=== PATIENT | female | born 1950 | race Caucasian/White ===

== ENCOUNTER 2020-01-08 11:14 | Inpatient (IN) ==
[2020-01-09] MEDS: *HR* HYDROcodone/Acet 5/325 mg TABLET PO PRN ×4 (01:57→20:35)
[2020-01-09] MEDS: *HR* Heparin 5,000 UNIT/ML VIAL SQ SCH ×2 (05:12→16:32)
[2020-01-09 05:36] LABS: Hematocrit 36.7 % (35.3-44.9); Hemoglobin 11.9 g/dL (11.5-15.4); Mean Corpuscular HGB Conc 32.4 g/dL (31.6-35.5); Mean Corpuscular Hemoglobin 28.6 pg (28.0-33.3); Mean Corpuscular Volume 88.2 fL (83.0-100.0); Mean Platelet Volume 10.1 fL (9.4-12.4); Platelet Count 445 K/mcL (140-400); Red Blood Count 4.16 M/mcL (3.82-4.97); White Blood Count 8.5 K/mcL (4.3-11.1)
[2020-01-09 05:57] LABS: BUN/Creatinine Ratio 21 (6-26); Blood Urea Nitrogen 16 mg/dL (8-23); Calcium 9.9 mg/dL (8.6-10.3); Carbon Dioxide 33 mEq/L (23-29); Chloride 92 mEq/L (98-107); Glucose 120 mg/dL (70-105); Osmolality,Calculated 280 (280-300); Potassium 4.1 mEq/L (3.5-5.1); Sodium 134 mEq/L (136-145); eGFR For African Americans > 60 (> 60); eGFR For Non-African Americans > 60 (> 60)
[2020-01-09] MEDS: FLUoxetine 20 MG CAPSULE PO SCH (08:39)
[2020-01-09] MEDS: Cholecalciferol (D-3) 1,000 UNIT (25MCG) TABLET PO SCH (08:39)
[2020-01-09] MEDS: Multivit/Ca/Min/Fe/FA 1 TAB TABLET PO SCH (08:39)
[2020-01-09] MEDS: hydroCHLOROthiazide 25 MG TABLET PO SCH (08:39)
[2020-01-09] MEDS: atenoloL 50 MG TABLET PO SCH (08:40)
[2020-01-09] MEDS: allopurinoL 100 MG TABLET PO SCH (08:40)
[2020-01-09] MEDS: lisinopriL 20 MG TABLET PO SCH (08:40)
[2020-01-09] MEDS: Nystatin POWDER 30 GM BOTTLE TP SCH ×2 (09:43→20:35)
[2020-01-09] MEDS ORDERED: MOM Conc 10 ML UD.LIQ PO PRN (11:29)
[2020-01-09] MEDS: Sennosides 8.6 MG TABLET PO SCH (20:35)
[2020-01-10] MEDS: *HR* Heparin 5,000 UNIT/ML VIAL SQ SCH ×2 (06:13→16:42)
[2020-01-10] MEDS: *HR* HYDROcodone/Acet 5/325 mg TABLET PO PRN ×2 (06:44→13:09)
[2020-01-10] MEDS: Sennosides 8.6 MG TABLET PO SCH ×2 (08:52→20:20)
[2020-01-10] MEDS: Cholecalciferol (D-3) 1,000 UNIT (25MCG) TABLET PO SCH (09:01)
[2020-01-10] MEDS: Multivit/Ca/Min/Fe/FA 1 TAB TABLET PO SCH (09:01)
[2020-01-10] MEDS: atenoloL 50 MG TABLET PO SCH (09:01)
[2020-01-10] MEDS: FLUoxetine 20 MG CAPSULE PO SCH (09:01)
[2020-01-10] MEDS: lisinopriL 20 MG TABLET PO SCH (09:01)
[2020-01-10] MEDS: allopurinoL 100 MG TABLET PO SCH (09:01)
[2020-01-10] MEDS: polyethylene glycoL 3350 17 GM POWD.PACK PO SCH (09:02)
[2020-01-10] MEDS: hydroCHLOROthiazide 25 MG TABLET PO SCH (09:02)
[2020-01-10] MEDS: Nystatin POWDER 30 GM BOTTLE TP SCH ×2 (09:03→20:22)
[2020-01-10] MEDS ORDERED: atenoloL 50 MG TABLET PO STA (10:52)
[2020-01-11] MEDS: *HR* Heparin 5,000 UNIT/ML VIAL SQ SCH ×2 (05:06→16:58)
[2020-01-11 05:13] LABS: Hemoglobin 11.6 g/dL (11.5-15.4); Mean Corpuscular HGB Conc 33.1 g/dL (31.6-35.5); Mean Corpuscular Hemoglobin 28.4 pg (28.0-33.3); Mean Corpuscular Volume 85.8 fL (83.0-100.0); Platelet Count 468 K/mcL (140-400); Red Blood Count 4.08 M/mcL (3.82-4.97); Red Cell Distribution Width 13.1 % (11.5-14.5); White Blood Count 9.8 K/mcL (4.3-11.1)
[2020-01-11 05:33] LABS: Alanine Aminotransferase 36 Units/L (7-52); Albumin 3.4 g/dL (3.5-5.7); Alkaline Phosphatase 74 Units/L (34-104); Aspartate Amino Transferase 53 Units/L (13-39); BUN/Creatinine Ratio 25 (6-26); Bilirubin,Total 0.7 mg/dL (0.3-1.0); Blood Urea Nitrogen 22 mg/dL (8-23); Calcium 9.6 mg/dL (8.6-10.3); Carbon Dioxide 30 mEq/L (23-29); Chloride 87 mEq/L (98-107); Globulin 3.4 g/dL (2.4-3.5); Glucose 123 mg/dL (70-105); Magnesium 1.7 mg/dL (1.6-2.6); Osmolality,Calculated 271 (280-300); Potassium 4.3 mEq/L (3.5-5.1); Sodium 128 mEq/L (136-145); Total Protein 6.8 g/dL (6.4-8.9); eGFR For African Americans > 60 (> 60); eGFR For Non-African Americans > 60 (> 60)
[2020-01-11] MEDS: Multivit/Ca/Min/Fe/FA 1 TAB TABLET PO SCH (08:57)
[2020-01-11] MEDS: lisinopriL 20 MG TABLET PO SCH (08:57)
[2020-01-11] MEDS: Cholecalciferol (D-3) 1,000 UNIT (25MCG) TABLET PO SCH (08:57)
[2020-01-11] MEDS: hydroCHLOROthiazide 25 MG TABLET PO SCH (08:58)
[2020-01-11] MEDS: allopurinoL 100 MG TABLET PO SCH (08:58)
[2020-01-11] MEDS: Nystatin POWDER 30 GM BOTTLE TP SCH ×2 (08:58→21:14)
[2020-01-11] MEDS: atenoloL 50 MG TABLET PO SCH (08:58)
[2020-01-11] MEDS: Sennosides 8.6 MG TABLET PO SCH ×2 (08:58→21:12)
[2020-01-11] MEDS: polyethylene glycoL 3350 17 GM POWD.PACK PO SCH (08:58)
[2020-01-11] MEDS: FLUoxetine 20 MG CAPSULE PO SCH (08:58)
[2020-01-11] MEDS: *HR* HYDROcodone/Acet 5/325 mg TABLET PO PRN (09:01)
[2020-01-11] MEDS: *HR* HYDROcodone/Acet 10/325 mg TABLET PO PRN (15:30)
[2020-01-12] MEDS: *HR* Heparin 5,000 UNIT/ML VIAL SQ SCH ×2 (04:53→17:19)
[2020-01-12 05:23] LABS: BUN/Creatinine Ratio 29 (6-26); Blood Urea Nitrogen 25 mg/dL (8-23); Calcium 9.5 mg/dL (8.6-10.3); Carbon Dioxide 30 mEq/L (23-29); Chloride 87 mEq/L (98-107); Glucose 101 mg/dL (70-105); Magnesium 1.9 mg/dL (1.6-2.6); Osmolality,Calculated 269 (280-300); Potassium 4.1 mEq/L (3.5-5.1); Sodium 127 mEq/L (136-145); eGFR For African Americans > 60 (> 60); eGFR For Non-African Americans > 60 (> 60)
[2020-01-12] MEDS: FLUoxetine 20 MG CAPSULE PO SCH (08:03)
[2020-01-12] MEDS: Sennosides 8.6 MG TABLET PO SCH ×2 (08:03→20:16)
[2020-01-12] MEDS: lisinopriL 20 MG TABLET PO SCH (08:04)
[2020-01-12] MEDS: allopurinoL 100 MG TABLET PO SCH (08:04)
[2020-01-12] MEDS: *HR* HYDROcodone/Acet 5/325 mg TABLET PO PRN ×2 (08:04→17:19)
[2020-01-12] MEDS: atenoloL 50 MG TABLET PO SCH (08:04)
[2020-01-12] MEDS: Cholecalciferol (D-3) 1,000 UNIT (25MCG) TABLET PO SCH (08:04)
[2020-01-12] MEDS: Multivit/Ca/Min/Fe/FA 1 TAB TABLET PO SCH (08:04)
[2020-01-12] MEDS: polyethylene glycoL 3350 17 GM POWD.PACK PO SCH (08:04)
[2020-01-12] MEDS: Nystatin POWDER 30 GM BOTTLE TP SCH ×2 (10:55→20:17)
[2020-01-13] MEDS: *HR* Heparin 5,000 UNIT/ML VIAL SQ SCH ×2 (04:54→16:32)
[2020-01-13] MEDS: lisinopriL 20 MG TABLET PO SCH (08:53)
[2020-01-13] MEDS: Cholecalciferol (D-3) 1,000 UNIT (25MCG) TABLET PO SCH (08:53)
[2020-01-13] MEDS: polyethylene glycoL 3350 17 GM POWD.PACK PO SCH (08:54)
[2020-01-13] MEDS: Multivit/Ca/Min/Fe/FA 1 TAB TABLET PO SCH (08:54)
[2020-01-13] MEDS: Nystatin POWDER 30 GM BOTTLE TP SCH ×2 (08:54→20:41)
[2020-01-13] MEDS: Sennosides 8.6 MG TABLET PO SCH ×2 (08:54→20:41)
[2020-01-13] MEDS: atenoloL 50 MG TABLET PO SCH (08:54)
[2020-01-13] MEDS: *HR* HYDROcodone/Acet 5/325 mg TABLET PO PRN ×2 (08:54→16:32)
[2020-01-13] MEDS: FLUoxetine 20 MG CAPSULE PO SCH (08:54)
[2020-01-13] MEDS: allopurinoL 100 MG TABLET PO SCH (08:54)
[2020-01-14] MEDS: *HR* HYDROcodone/Acet 5/325 mg TABLET PO PRN ×2 (01:08→12:14)
[2020-01-14] MEDS: *HR* Heparin 5,000 UNIT/ML VIAL SQ SCH ×2 (04:58→18:16)
[2020-01-14 05:09] LABS: BUN/Creatinine Ratio 27 (6-26); Blood Urea Nitrogen 27 mg/dL (8-23); Calcium 9.5 mg/dL (8.6-10.3); Carbon Dioxide 32 mEq/L (23-29); Chloride 87 mEq/L (98-107); Glucose 90 mg/dL (70-105); Osmolality,Calculated 271 (280-300); Potassium 4.1 mEq/L (3.5-5.1); Sodium 128 mEq/L (136-145); eGFR For African Americans > 60 (> 60); eGFR For Non-African Americans 55 (> 60)
[2020-01-14] MEDS: lisinopriL 20 MG TABLET PO SCH (08:50)
[2020-01-14] MEDS: Cholecalciferol (D-3) 1,000 UNIT (25MCG) TABLET PO SCH (08:50)
[2020-01-14] MEDS: Sennosides 8.6 MG TABLET PO SCH ×2 (08:50→20:16)
[2020-01-14] MEDS: atenoloL 50 MG TABLET PO SCH (08:50)
[2020-01-14] MEDS: Multivit/Ca/Min/Fe/FA 1 TAB TABLET PO SCH (08:50)
[2020-01-14] MEDS: FLUoxetine 20 MG CAPSULE PO SCH (08:50)
[2020-01-14] MEDS: allopurinoL 100 MG TABLET PO SCH (08:51)
[2020-01-14] MEDS: polyethylene glycoL 3350 17 GM POWD.PACK PO SCH (08:51)
[2020-01-14] MEDS: Nystatin POWDER 30 GM BOTTLE TP SCH (08:51)
[2020-01-14] MEDS: *HR* HYDROcodone/Acet 10/325 mg TABLET PO PRN (20:16)
[2020-01-15] MEDS: Nystatin POWDER 30 GM BOTTLE TP SCH ×3 (01:52→21:52)
[2020-01-15] MEDS: *HR* Heparin 5,000 UNIT/ML VIAL SQ SCH ×2 (04:37→17:35)
[2020-01-15] MEDS: *HR* HYDROcodone/Acet 10/325 mg TABLET PO PRN ×2 (04:39→21:52)
[2020-01-15] MEDS: lisinopriL 20 MG TABLET PO SCH (08:40)
[2020-01-15] MEDS: allopurinoL 100 MG TABLET PO SCH (08:40)
[2020-01-15] MEDS: Cholecalciferol (D-3) 1,000 UNIT (25MCG) TABLET PO SCH (08:40)
[2020-01-15] MEDS: atenoloL 50 MG TABLET PO SCH (08:40)
[2020-01-15] MEDS: FLUoxetine 20 MG CAPSULE PO SCH (08:40)
[2020-01-15] MEDS: Sennosides 8.6 MG TABLET PO SCH ×2 (08:40→21:52)
[2020-01-15] MEDS: Multivit/Ca/Min/Fe/FA 1 TAB TABLET PO SCH (08:40)
[2020-01-15] MEDS: polyethylene glycoL 3350 17 GM POWD.PACK PO SCH (09:12)
[2020-01-15] MEDS: *HR* HYDROcodone/Acet 5/325 mg TABLET PO PRN (12:04)
[2020-01-15 21:10] LABS: Adenovirus Not Detected (Not Detect); Bordetella Pertussis Not Detected (Not Detect); Chlamydophila pneumoniae Not Detected (Not Detect); Coronavirus 229E Not Detected (Not Detect); Coronavirus HKU1 Not Detected (Not Detect); Coronavirus NL63 Not Detected (Not Detect); Coronavirus OC43 Not Detected (Not Detect); Human Metapneumovirus Not Detected (Not Detect); Human Rhinovirus/Enterovirus Not Detected (Not Detect); Influenza A Subtype 2009 H1 Not Detected (Not Detect); Influenza B Not Detected (Not Detect); Mycoplasma pneumoniae Not Detected (Not Detect); Parainfluenza Virus 1 Not Detected (Not Detect); Parainfluenza Virus 2 Not Detected (Not Detect); Parainfluenza Virus 3 Not Detected (Not Detect); Parainfluenza Virus 4 Not Detected (Not Detect); Respiratory Syncytial Virus Not Detected (Not Detect); SARS-CoV-2 Not Detected (Not Detect)
[2020-01-16] MEDS: *HR* Heparin 5,000 UNIT/ML VIAL SQ SCH ×2 (04:05→18:44)
[2020-01-16] MEDS: *HR* HYDROcodone/Acet 5/325 mg TABLET PO PRN ×2 (04:05→14:17)
[2020-01-16] MEDS: Sennosides 8.6 MG TABLET PO SCH ×2 (08:24→20:52)
[2020-01-16] MEDS: lisinopriL 20 MG TABLET PO SCH (08:24)
[2020-01-16] MEDS: Cholecalciferol (D-3) 1,000 UNIT (25MCG) TABLET PO SCH (08:24)
[2020-01-16] MEDS: allopurinoL 100 MG TABLET PO SCH (08:24)
[2020-01-16] MEDS: atenoloL 50 MG TABLET PO SCH (08:24)
[2020-01-16] MEDS: Multivit/Ca/Min/Fe/FA 1 TAB TABLET PO SCH (08:24)
[2020-01-16] MEDS: FLUoxetine 20 MG CAPSULE PO SCH (08:25)
[2020-01-16] MEDS: polyethylene glycoL 3350 17 GM POWD.PACK PO SCH (08:27)
[2020-01-16] MEDS: Nystatin POWDER 30 GM BOTTLE TP SCH (08:27)
[2020-01-16] MEDS: *HR* HYDROcodone/Acet 10/325 mg TABLET PO PRN (20:52)
[2020-01-17] MEDS: Nystatin POWDER 30 GM BOTTLE TP SCH ×3 (04:05→20:35)
[2020-01-17] MEDS: *HR* HYDROcodone/Acet 5/325 mg TABLET PO PRN ×2 (05:02→16:17)
[2020-01-17] MEDS: *HR* Heparin 5,000 UNIT/ML VIAL SQ SCH ×2 (05:03→16:17)
[2020-01-17] MEDS: Multivit/Ca/Min/Fe/FA 1 TAB TABLET PO SCH (07:55)
[2020-01-17] MEDS: Sennosides 8.6 MG TABLET PO SCH ×2 (07:56→20:35)
[2020-01-17] MEDS: polyethylene glycoL 3350 17 GM POWD.PACK PO SCH (07:56)
[2020-01-17] MEDS: lisinopriL 20 MG TABLET PO SCH (07:56)
[2020-01-17] MEDS: Cholecalciferol (D-3) 1,000 UNIT (25MCG) TABLET PO SCH (07:56)
[2020-01-17] MEDS: atenoloL 50 MG TABLET PO SCH (07:56)
[2020-01-17] MEDS: FLUoxetine 20 MG CAPSULE PO SCH (07:56)
[2020-01-17] MEDS: allopurinoL 100 MG TABLET PO SCH (07:56)
[2020-01-18] MEDS: *HR* Heparin 5,000 UNIT/ML VIAL SQ SCH ×2 (05:08→16:59)
[2020-01-18] MEDS: *HR* HYDROcodone/Acet 5/325 mg TABLET PO PRN ×2 (06:58→21:44)
[2020-01-18] MEDS: polyethylene glycoL 3350 17 GM POWD.PACK PO SCH (07:45)
[2020-01-18] MEDS: lisinopriL 20 MG TABLET PO SCH (07:45)
[2020-01-18] MEDS: atenoloL 50 MG TABLET PO SCH (07:45)
[2020-01-18] MEDS: Multivit/Ca/Min/Fe/FA 1 TAB TABLET PO SCH (07:45)
[2020-01-18] MEDS: Sennosides 8.6 MG TABLET PO SCH ×2 (07:45→19:45)
[2020-01-18] MEDS: FLUoxetine 20 MG CAPSULE PO SCH (07:45)
[2020-01-18] MEDS: Cholecalciferol (D-3) 1,000 UNIT (25MCG) TABLET PO SCH (07:45)
[2020-01-18] MEDS: allopurinoL 100 MG TABLET PO SCH (07:45)
[2020-01-18] MEDS: Nystatin POWDER 30 GM BOTTLE TP SCH ×2 (07:46→19:47)
[2020-01-19] MEDS: *HR* HYDROcodone/Acet 5/325 mg TABLET PO PRN ×3 (04:59→20:58)
[2020-01-19] MEDS: *HR* Heparin 5,000 UNIT/ML VIAL SQ SCH ×2 (04:59→17:57)
[2020-01-19 05:01] LABS: Basophils % 0.8 %; Eosinophils # 0.1 K/mcL (0.0-0.6); Eosinophils % 1.6 %; Hematocrit 34.4 % (35.3-44.9); Hemoglobin 11.2 g/dL (11.5-15.4); Immature Granulocytes % 0.6 % (0-4); Lymphocytes # 1.2 K/mcL (0.6-4.6); Lymphocytes % 24.8 %; Mean Corpuscular HGB Conc 32.6 g/dL (31.6-35.5); Mean Corpuscular Hemoglobin 28.6 pg (28.0-33.3); Mean Corpuscular Volume 87.8 fL (83.0-100.0); Mean Platelet Volume 10.5 fL (9.4-12.4); Monocytes # 0.6 K/mcL (0.0-1.3); Monocytes % 11.8 %; Platelet Count 347 K/mcL (140-400); Red Blood Count 3.92 M/mcL (3.82-4.97); Red Cell Distribution Width 13.4 % (11.5-14.5); Segmented Neutrophils % 60.4 %
[2020-01-19 05:16] LABS: BUN/Creatinine Ratio 20 (6-26); Blood Urea Nitrogen 17 mg/dL (8-23); Calcium 9.3 mg/dL (8.6-10.3); Carbon Dioxide 31 mEq/L (23-29); Chloride 91 mEq/L (98-107); Glucose 113 mg/dL (70-105); Osmolality,Calculated 270 (280-300); Potassium 4.8 mEq/L (3.5-5.1); Sodium 129 mEq/L (136-145); eGFR For African Americans > 60 (> 60); eGFR For Non-African Americans > 60 (> 60)
[2020-01-19] MEDS: Nystatin POWDER 30 GM BOTTLE TP SCH ×2 (10:02→20:59)
[2020-01-19] MEDS: polyethylene glycoL 3350 17 GM POWD.PACK PO SCH (10:02)
[2020-01-19] MEDS: Multivit/Ca/Min/Fe/FA 1 TAB TABLET PO SCH (10:31)
[2020-01-19] MEDS: Cholecalciferol (D-3) 1,000 UNIT (25MCG) TABLET PO SCH (10:31)
[2020-01-19] MEDS: Sennosides 8.6 MG TABLET PO SCH ×2 (10:31→20:57)
[2020-01-19] MEDS: lisinopriL 20 MG TABLET PO SCH (10:31)
[2020-01-19] MEDS: atenoloL 50 MG TABLET PO SCH (10:32)
[2020-01-19] MEDS: allopurinoL 100 MG TABLET PO SCH (10:32)
[2020-01-19] MEDS: FLUoxetine 20 MG CAPSULE PO SCH (10:32)
[2020-01-20] MEDS: *HR* HYDROcodone/Acet 5/325 mg TABLET PO PRN ×3 (05:41→20:54)
[2020-01-20] MEDS: *HR* Heparin 5,000 UNIT/ML VIAL SQ SCH ×2 (05:41→16:59)
[2020-01-20] MEDS: atenoloL 50 MG TABLET PO SCH (08:16)
[2020-01-20] MEDS: Nystatin POWDER 30 GM BOTTLE TP SCH ×2 (08:16→22:49)
[2020-01-20] MEDS: Multivit/Ca/Min/Fe/FA 1 TAB TABLET PO SCH (08:16)
[2020-01-20] MEDS: polyethylene glycoL 3350 17 GM POWD.PACK PO SCH (08:16)
[2020-01-20] MEDS: allopurinoL 100 MG TABLET PO SCH (08:16)
[2020-01-20] MEDS: Cholecalciferol (D-3) 1,000 UNIT (25MCG) TABLET PO SCH (08:16)
[2020-01-20] MEDS: Sennosides 8.6 MG TABLET PO SCH ×2 (08:16→20:55)
[2020-01-20] MEDS: FLUoxetine 20 MG CAPSULE PO SCH (08:16)
[2020-01-20] MEDS: lisinopriL 20 MG TABLET PO SCH (08:16)
[2020-01-21] MEDS ORDERED: Acetaminophen 325 MG TABLET PO PRN (00:41)
[2020-01-21] MEDS: *HR* Heparin 5,000 UNIT/ML VIAL SQ SCH (05:20)
[2020-01-21] MEDS: *HR* HYDROcodone/Acet 10/325 mg TABLET PO PRN (06:30)
[2020-01-21 08:15] VITALS: BP 159/83
[2020-01-21] MEDS: Sennosides 8.6 MG TABLET PO SCH (08:28)
[2020-01-21] MEDS: FLUoxetine 20 MG CAPSULE PO SCH (08:28)
[2020-01-21] MEDS: atenoloL 50 MG TABLET PO SCH (08:28)
[2020-01-21] MEDS: allopurinoL 100 MG TABLET PO SCH (08:28)
[2020-01-21] MEDS: lisinopriL 20 MG TABLET PO SCH (08:29)
[2020-01-21] MEDS: Nystatin POWDER 30 GM BOTTLE TP SCH (08:29)
[2020-01-21] MEDS: Multivit/Ca/Min/Fe/FA 1 TAB TABLET PO SCH (08:29)
[2020-01-21] MEDS: Cholecalciferol (D-3) 1,000 UNIT (25MCG) TABLET PO SCH (08:29)
[2020-01-21] MEDS: polyethylene glycoL 3350 17 GM POWD.PACK PO SCH (08:29)
== END 2020-01-21 11:20 | disposition home health service (06) | DRG 560 ==
LOC: INPGRE 21:06
PROVIDERS: ADMIT Family Medicine; ATTEND Family Medicine